=== PATIENT | male | born 1985 | race Caucasian/White ===

== ENCOUNTER 2016-12-11 05:07 | Emergency (ER) | payer OTHER ==
[~2016-12-11] VITALS: Ht 165.1 cm; Wt 59.1 kg
[~2016-12-11 05:07] MED LIST: ALBU8.5H4 IH; ASCO500C6 PO; BECL8.7A6 IH; CALC-190 PO; CHOL40003 PO; ECON15CR10 TP; FLUT16SP2 NS; FOLI-52 PO; PSEU60TA PO; VITA1CAP PO
[2016-12-11 05:14] VITALS: BP 126/83; PULSE 83; RESP 26; O2SAT 100
[2016-12-11] MEDS ORDERED: 0.9% Sodium Chloride 1,000 ML IV ONE (05:38)
[2016-12-11] MEDS ORDERED: Ondansetron 2 mg/mL 2 mL Inj IVPUSH ONE (05:40)
[2016-12-11] MEDS ORDERED: HYDROmorphone 1 mg/mL Inj IVPUSH PRN (05:40)
[2016-12-11] MEDS ORDERED: Pantoprazole 4 mg/mL 10 mL Inj IVPUSH ONE (05:40)
[2016-12-11 05:45] LABS: BASOPHILS % (AUTO) 0.5 % (0-3); EOSINOPHILS % (AUTO) 3.2 % (0-5); MONOCYTES % (AUTO) 8.9 % (4-12); Mean Corpuscular Hemoglobin 30.3 pg (27.0-35.0); Mean Corpuscular Volume 87.6 fL (81-100); NEUTROPHILS % (AUTO) 47.7 % (40-74); Platelet Count 223 bil/L (150-400)
[2016-12-11 06:00] LABS: INR 0.94 ratio
[2016-12-11 06:00] LABS: APPEARANCE,URINE CLEAR (CLEAR,HAZY); COLOR,URINE YELLOW (YELLOW); OCCULT BLOOD,URINE LARGE (NEGATIVE); PH,URINE 5.5 (5.0-8.0); UROBILINOGEN,URINE NORMAL (NORMAL)
--- NOTE | 2016-12-11 06:05 | ED.REPORT ---
HPI-Abd Pain M Under 40 Date of Service Dec 11, 2016 ED Provider: Haresh Casanova MD The patient is a 31 year old male who presents to the emergency department complaining of left flank pain that woke him from sleep this morning. His pain radiates into his LLQ and he has also noticed hematuria. Over the last 2 days he has experienced increased urinary urgency/frequency. He has not had similar symptoms in the past. He does not have history of kidney stones. He denies fever , chills, vomiting, cough, shortness of breath or chest pain. Nursing Notes Stated Complaint: L FLANK PAIN Chief Complaint: Male Abdominal Pain Nursing Notes Reviewed: Yes Allergies: Coded Allergies: egg (Verified Allergy, Unknown, 12/11/16) Uncoded Allergies: FOOD ALLERGIES (Allergy, Unknown, UNKNOWN (CORN,RICE,EGGS), 04/03/14) Scheduled Ascorbic Acid (Vitamin C) 500 Mg Capsule.er 500 MG PO DAILY Beclomethasone Dipropionate (Qvar) 8.7 Gm Aer.w.adap 8.7 GM IH BID Calcium Carb&Cit/Mag12/Vit D3 (Calcium 500 mg Tablet) 1 Each Tablet 1 EACH PO DAILY Cholecalciferol (Vitamin D3) (Vitamin D3) 4,000 Unit Capsule 4,000 UNIT PO DAILY Econazole Nitrate (Econazole Nitrate) 15 Gm Cream..g. 1 APPL TP BID 1% Fluticasone Propionate (Flonase Nasal) 16 Gm [place].susp 1 SPRAY NS DAILY Multivitamin/Iron/Folic Acid (Centrum Complete Multivit Tab) 1 Each Tablet 1 EACH PO DAILY Pseudoephedrine HCl (Pseudoephedrine HCl) 60 Mg Tablet 60 MG PO Q 6HRS PRN Vitamin B Complex (Vitamin B Complex) 1 Each Capsule 1 EACH PO DAILY Scheduled PRN Albuterol HFA (Albuterol HFA) 8.5 Gm Hfa.aer.ad 1-2 PUFF IH Q 4-6HRS PRN PRN PRN For Shortness of Breath General Time Seen by MD: 05:49 Chief Complaint Flank pain left Hx Obtained From: Patient Arrived By: Walk-in Sudden in Onset?: Yes Onset Occurred: 1 - 4 hours ago Symptom Duration: Since onset Progression since Onset: Constant Location: : Flank left Quality: Painful Radiation: : LLQ Severity: Current: Moderate Severity: Maximum: Severe Associated with: Reports: Hematuria Pertinent Negative: Pt denies other symptoms Recent Healthcare: No recent doctor visit, No recent hospitalization Similar Sx Previous: No Past Medical History Past Medical History Asthma Past Surgical History Denies Family History Noncontributory Smoking History Current Every Day Smoker Social History Other Social History: Local resident Ambulatory Status Independent Review of Systems Constitutional: Denies: Chills, Fever GI: Reports: Abdominal pain, Denies: Vomiting Male: Reports Flank pain, Reports Hematuria, Reports Urinary frequency, Reports Urinary urgency Musculoskeletal: Reports: Back pain Complete sys rev & neg: except as marked. Physical Exam Initial Vital Signs Vital Signs (First) Date Time Temp Pulse Resp B/P Pulse Ox O2 Delivery O2 Flow Rate FiO2 12/11/16 05:14 36.4 83 26 126/83 100 Room Air Initial VS: Reviewed Head / Eyes: Atraumatic, Normocephalic, PERRL ENT: Mucous membranes moist, Conjunctiva normal, No scleral icterus Neck: Supple, Non-tender, Full range of motion Lymphatic: No lymphadenopathy Extremities: Vascular intact, Neuro intact, No swelling, No tenderness Skin: Warm, Dry, No cyanosis Neurologic: Alert, Oriented, Nonfocal Psychiatric: Mood/affect normal, Behavior normal, Normal thought content General/Constitutional: Awake, Alert, No acute distress, Well appearing Respiratory / Chest: Atraumatic, Breath sounds NL, Breath sounds = bilat, No respiratory distress, No rales, No rhonchi, No wheezing, No stridor Cardiovascular: Heart rate NL, Regular rhythm, Heart sounds NL, No gallop, No murmurs, No rubs, Peripheral circulation NL Abdomen: Soft, No guarding, No rebound, BS normoactive, No distention, No hernia, No palpable mass, No pulsatile mass Tenderness/Guarding/Rebound: Positive: Tender LLQ... Back: Inspection NL, No midline vertebral tend Interpretation & Diagnostics Lab Results Interpretation Result Diagram: 12/11/16 0538 12/11/16 0538 Test 12/11/16 05:30 12/11/16 05:38 12/11/16 05:40 Urine Color Yellow (YELLOW) Urine Appearance Clear (CLEAR,HAZY) Urine pH 5.5 (5.0-8.0) Urine Specific [place] 1.025 (1.003-1.035) Urine Protein Negativemg/dL (NEG,TRACE) Urine Glucose (UA) Negativemg/dL (NEGATIVE) Urine Ketones Negativemg/dL (NEGATIVE) Urine Occult Blood Large (NEGATIVE) Urine Nitrite Negative (NEGATIVE) Urine Bilirubin Negative (NEGATIVE) Urine Urobilinogen Normalmg/dL (NORMAL) Urine Leukocyte Esterase Negative (NEGATIVE) Urine RBC 11-50/hpf (0-2) Urine WBC 0-5/hpf (0-5) Urine Epithelial Cells Occasional/hpf (NONE-MOD) Urine Crystals None seen (NONE SEEN) Urine Bacteria Few/hpf (NONE-FEW) Urine Hyaline Casts None/lpf (NONE) Urine Granular Casts None seen (NONE SEEN) Urine Waxy Casts None seen (NONE SEEN) Urine Red Blood Cell Casts None seen (NONE SEEN) Urine White Blood Cell Casts None seen (NONE SEEN) Urine Mucus None seen (None Seen) Urine Trichomonas None seen (NONE SEEN) Urine Yeast None (NONE SEEN) Urinalysis Comment None Urine Culture Reflexed Not indicated Hold Urine Received (Received) White Blood Count 10.8th/mm3 (3.8-10.1) Red Blood Count 5.01mil/mm3 (4.40-5.80) Hemoglobin 15.2g/dL (13.8-17.2) Hematocrit 43.9% (41.0-50.0) Mean Corpuscular Volume 87.6fL (81-100) Mean Corpuscular Hemoglobin 30.3pg (27.0-35.0) Mean Corpuscular Hemoglobin Concent 34.6% (32.0-37.0) Red Cell Distribution Width 12.4% (12.3-15.4) Platelet Count 223bil/L (150-400) Neutrophils (%) (Auto) 47.7% (40-74) Lymphocytes (%) (Auto) 39.1% (14-46) Monocytes (%) (Auto) 8.9% (4-12) Eosinophils (%) (Auto) 3.2% (0-5) Basophils (%) (Auto) 0.5% (0-3) Sodium Level 141mEq/L (134-144) Potassium Level 3.6mEq/L (3.5-5.2) Chloride Level 104mEq/L (97-108) Carbon Dioxide Level 20mmol/L (18-29) Blood Urea Nitrogen 11mg/dL (6-20) Creatinine 0.87mg/dL (0.76-1.27) Estimat Glomerular Filtration Rate 109mL/min (>59) Glucose Level 119mg/dL (60-99) Calcium Level 9.4mg/dL (8.5-10.1) Magnesium Level 2.0mg/dL (1.6-2.6) Total Bilirubin 0.2mg/dL (0.0-1.2) Aspartate Amino Transf (AST/SGOT) 19U/L (0-50) Alanine Aminotransferase (ALT/SGPT) 13U/L (0-44) Alkaline Phosphatase 70U/L (25-150) Total Protein 7.0g/dL (6.4-8.4) Albumin 4.3g/dL (3.4-5.0) Lipase 42U/L (13-60) Hold Diop Top Tube Received (Received) Prothrombin Time 10.0sec (8.1-12.5) Prothromb Time International Ratio 0.94ratio Re-Eval/Medical Decision Re-Evaluation/Progress : Time of Eval: 07:05 Re-Evaluation/Progress Note: Rechecked the patient. Discussed results, diagnosis, and plan for discharge. All questions were addressed. Counseled Regarding: Diagnosis, Lab results, Need for follow-up, When/why to return to ED Patient Discharge & Departure Primary Impression: Ureterolithiasis Disposition: Home Discharge Condition All VS Reviewed: Yes Condition: Stable Patient Instructions: Renal Colic (ED) Additional Instructions: Thank you for entrusting us with your care today. Your CT scan does show evidence of a left-sided 2 mm distal ureteral stone. It should pass on its own. Use the urine strainer to catch the stone. Take Vicodin as needed for more severe pain and ibuprofen 800 mg every 8 hours for your pain and Zofran as needed for your nausea. Make sure to drink plenty of fluids. You should followup with your regular doctor if your symptoms continue early next week. Please return to the emergency department if you develop increased pain, inability to urinate, fever, chills, uncontrollable vomiting, or any other new or concerning symptoms. Referrals: NOPCP (PCP) Vincent Sprague Attestation Portions of this note were transcribed by Ade Ortega. IDr. Casanova personally performed the history, physical exam and medical decision-making; I reviewed and confirmed the accuracy of the information in the transcribed note. Signed by: Art Chauhan, 12/11/2016 at 0800. copies to: Vincent Sprague Kirk H MD Dec 11, 2016 06:05 Ade Ortega Dec 11, 2016 06:15
[2016-12-11 06:46] VITALS: BP 126/74; PULSE 82; RESP 14; O2SAT 99
[2016-12-11] MEDS ORDERED: ONDA4TAB9 PO (07:19)
[2016-12-11] MEDS ORDERED: HYDR-4003 PO (07:19)
[2016-12-11 07:39] VITALS: BP 122/71; PULSE 83; RESP 15; O2SAT 99
--- NOTE | 2016-12-11 08:18 | DRSVH ---
PROCEDURE: CT ABDOMEN AND PELVIS WITH CONTRAST ([id number]) INDICATIONS: left flank pain TECHNIQUE: After the administration of intravenous contrast, 5 mm thick sections acquired from the diaphragm to the symphysis. 5 mm coronal and sagittal reformats were acquired. For radiation dose reduction, the following was used: automated exposure control, adjustment of mA and/or kV according to patient aracely call. COMPARISON: [facility], CT, ABD/PELVIS W/CON (PNL), 01/20/2013, 13:39. FINDINGS: Image quality: Excellent. ABDOMEN: Lung bases: Lung bases are clear. Heart size is normal. Solid organs: Liver and spleen are normal in size and enhancement. Gallbladder is normal. Biliary system is non dilated. Pancreas enhances normally. No adrenal nodules. There is a 2 mm stone in the distal left ureter near the uterovesical junction. There is mild left ur eterectasis. Kidneys demonstrate normal size and enhancement, without hydronephrosis. There is mild left perinephric stranding. Peritoneum and bowel: Stomach is mildly distended and filled with fluid. Sigmoid colon minimally thi ckened. Bowel loops demonstrate normal caliber. No free fluid or air. Nodes and vessels: No retroperitoneal or mesenteric adenopathy by size criteria. Aorta and inferior vena cava are normal in size. Miscellaneous: No ventral hernias. PELVIS: Genitourinary: Bladder wall thickness is normal. Miscellaneous: No inguinal hernias or adenopathy. Bones: No suspicious bony lesions. No vertebral body compression fractures. IMPRESSION: 1. A 2 mm stone in the distal left ureter near the uterovesical junction. There is mild left ureterec tasis and mild left perinephric stranding but no hydronephrosis. 2. Fluid filled, mildly distended stomach, which is a nonspecific finding. 2. Mildly thickened appearance of sigmoid colon. In the absence of oral contrast, stranding could be due to artifact or mild colitis. Recommend clinical correlation. Please note discrepancy between the final report and the [employer] radiology preliminary report. The result was discussed with Dr. Casanova in ER. Dictated by: Lois Multani M.D. on 12/11/2016 at 8:08 Transcribed by: JOSSELYN on 12/11/2016 at 8:17 Approved by: Lois Multani M.D. on 12/11/2016 at 10:06
== END 2016-12-11 07:39 | disposition home or self-care (01) ==
LOC: SED 05:07
DX: N21.1 Calculus in urethra (principal); F17.210 Nicotine dependence, cigarettes, uncomplicated; Z79.899 Other long term (current) drug therapy; Z91.018 Allergy to other foods
CPT/HCPCS: 36415; 74177; 80053; 81000; 83690; 83735; 85025; 85610; 96374; 96375; 99285; J1170; J1885; J2405; J7030; Q9967